=== PATIENT | male | born 1955 | race Caucasian/White ===

== ENCOUNTER 2019-05-24 15:35 | Emergency (ER) | payer OTHER ==
[2019-05-24 16:04] VITALS: O2SAT 98
--- NOTE | 2019-05-24 16:10 | ERPHSYRPT ---
- History of Present Illness Time Seen by Provider: 05/24/19 15:50 Source: patient Exam Limitations: no limitations Patient Subjective Stated Complaint: Pt was bending over an arm rest in a vehicle on Friday while it was up in the air and pt's foot slipped and it shoved the arm rest into his left lateral ribs, pt states that you can feel something in there Triage Nursing Assessment: Pt walked into the ER with a slow cautious walk, hypertensive, denies any other injuries, rates pain 6/10 in the left ribs, tender to palpate, lungs clear Physician History: 63 y/o white male presents to ED with painful left lateral ribs. pt was leaning up against a car arm rest then feet slipped and fell into it. pain is worse. pt states he has pain and feels something moving. Occurred: days ago (2) Reason for Fall: slipped Injuries/Pain Location: chest (left lateral ribs) Severity of Pain-Max: moderate Severity of Pain-Current: moderate Modifying Factors: Improves With: other (deep breathing) Associated Symptoms (Fall): denies symptoms Allergies/Adverse Reactions: levofloxacin [From Levaquin] Allergy (Verified 05/24/19 16:04) Penicillins Allergy (Verified 05/24/19 16:04) Home Medications: Aspirin EC 81 mg [Ecotrin 81 mg] 81 mg PO DAILY 05/24/19 [History] Metoprolol Tartrate 25 mg [Lopressor 25MG Tab] 25 mg PO BID 05/24/19 [ History] Pravastatin Sodium 80 mg PO HS 05/24/19 [History] Hx Tetanus, Diphtheria Vaccination/Date Given: No - Review of Systems Constitutional: No Symptoms Eyes: No Symptoms Ears, Nose, & Throat: No Symptoms Respiratory: No Symptoms Cardiac: No Symptoms Abdominal/Gastrointestinal: No Symptoms Genitourinary Symptoms: No Symptoms Musculoskeletal: Fall Skin: No Symptoms Neurological: No Symptoms Psychological: No Symptoms Endocrine: No Symptoms Hematologic/Lymphatic: No Symptoms Immunological/Allergic: No Symptoms All Other Systems: Reviewed and Negative - Past Medical History Pertinent Past Medical History: Yes Neurological History: No Pertinent History ENT History: No Pertinent History Cardiac History: High Cholesterol, Hypertension, Myocardial Infarction ([place]) Respiratory History: No Pertinent History Endocrine Medical History: No Pertinent History Musculoskeletal History: No Pertinent History GI Medical History: Esophageal Disorder History: No Pertinent History Psycho-Social History: No Pertinent History Male Reproductive Disorders: No Pertinent History - Past Surgical History Past Surgical History: Yes Cardiac: Cardiac Stent Gastrointestinal: Appendectomy Genitourinary: No Pertinent History Musculoskeletal: No Pertinent History Male Surgical History: No Pertinent History - Social History Smoking Status: Current every day smoker How long have you smoked: 30 Exposure to second hand smoke: Yes Drug Use: marijuana Patient Lives Alone: Yes - Nursing Vital Signs Nursing Vital Signs: Initial Vital Signs Temperature 97.9 F 05/24/19 15:49 Pulse Rate 53 L 05/24/19 15:49 Blood Pressure 166/88 05/24/19 15:49 O2 Sat by Pulse Oximetry 98 05/24/19 15:49 Pain Scale Pain Intensity 6 - [place] Coma Score Best Eye Response ([place]): (4) open spontaneously Best Verbal Response ([place]): (5) oriented Best Motor Response ([place]): (6) obeys commands [place] Total: 15 - Physical Exam General Appearance: no apparent distress, alert, anxiety Head Injury: no evidence of injury Eye Exam: PERRL/EOMI, eyes nml inspection ENT Exam: airway nml, nml ext.inspection, hearing grossly normal, No evidence of ENT injury Neck Exam: supple, trachea midline, full range of motion, normal alignment Respiratory/Chest Exam: normal breath sounds, rib tenderness (left lateral), No respiratory distress, No crepitus, No accessory muscle use, No palpable fracture Cardiovascular Exam: normal heart sounds, regular rate/rhythm Gastrointestinal Exam: soft, normal bowel sounds, No tenderness Rectal Exam: not done Back Exam: normal inspection, normal range of motion, No CVA tenderness, No vertebral tenderness Extremity Exam: normal inspection, normal range of motion, pelvis stable Neurologic Exam: alert, oriented x 3, cooperative, 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 Skin Exam: normal color, warm, dry SpO2 Interpretation: normal SpO2: 98 O2 Delivery: Room Air - Course Nursing assessment & vital signs reviewed: Yes Ordered Tests: Active Orders 24 hr Category Date Time Status RIBS UNILATERAL Stat Exams 05/24/19 16:04 Taken - Progress Progress: unchanged Progress Note: 05/24/19 16:34 left rib xray-no acute fx Counseled pt/family regarding: need for follow-up, rad results - Departure Departure Disposition: Home Clinical Impression: Contusion of rib on left side Condition: Stable Critical Care Time: No Referrals: GABY MORELOS [Primary Care Provider] - Additional Instructions: ice pack to site 3 times daily for 3 days. add ibuprofen 600mg orally 3 times daily with food. take medications as prescribed. follow up with primary doctor for persistent pain Prescriptions: Oxycodone HCl/Acetaminophen [Percocet 5-325 mg Tablet] 1 each PO Q8H PRN PRN #9 tablet MDD 3 PRN Reason: Pain Cyclobenzaprine HCl 10 mg [Cyclobenzaprine 10 MG] 10 mg PO TID #10 tablet
--- NOTE | 2019-05-24 16:34 | XRAY ---
Indication: Left lower rib pain following injury 3 days ago. Comparison: June 03, 2014. 2 views of the left ribs again demonstrates mild osteopenia. No new/acute bony, articular, or soft tissue abnormalities.
[2019-05-24 16:49] VITALS: BP 147/86; PULSE 52
== END 2019-05-24 16:49 | disposition home or self-care (01) ==
LOC: ED 15:35
DX: S20.212A Contusion of left front wall of thorax, initial encounter (principal); W22.09XA Striking against other stationary object, initial encounter
CPT/HCPCS: 71100; 99283